=== PATIENT | female | born 1975 | race Hispanic/Latino ===

== ENCOUNTER 2020-02-18 06:53 | Day surgery (SDC) | payer BC ==
[2020-02-16 15:17] LABS: Absolute Lymphocytes (CBC) 1.7 K/uL (0.7-4.9); Basophils % 0.5 % (0-1.3); Hematocrit 44.5 % (36.0-45.0); Lymphocytes % 27.1 % (15.3-44.8); RBC Red Blood Cell Count 5.01 M/uL (3.86-4.86)
[2020-02-16 15:38] LABS: Albumin 4.2 g/dL (3.4-5.0); Bilirubin Direct 0.1 mg/dL (0-0.2); Bilirubin Total 0.3 mg/dL (0.2-1.0); Potassium 3.9 mmol/L (3.5-5.1); Protein, Total 7.7 g/dL (6.4-8.2)
--- NOTE | 2020-02-16 16:24 | RAD REPORT ---
EXAM DESCRIPTION: RAD - Chest Pa And Lat (2 Views) - 02/16/2020 3:18 pm CLINICAL HISTORY: pre oppending cholecystectomy COMPARISON: Two view chest August 2019 TECHNIQUE: Frontal and lateral views of the chest were obtained. FINDINGS: The lungs are clear. Interstitial pattern matches comparison. Heart size is normal and ce ntral vasculature is within normal limits. No pleural effusion or pneumothorax seen. No acute bony finding noted. No aortic abnormality. IMPRESSION: No acute cardiopulmonary process.
--- NOTE | 2020-02-17 18:15 | EKG ---
Test Date: 2020-02-16 Test Time: 14:49:35 Academic Guidance Specialist: CIARRA MEASUREMENT RESULTS: Intervals: Rate: 66 VA: 178 QRSD: 76 QT: 398 QTc: 417 [place]: P: 67 VA: 178 QRS: 56 T: 45 INTERPRETIVE STATEMENTS: Normal sinus rhythm Low voltage QRS Borderline ECG Compared to ECG 04/08/2018 16:04:53 Low QRS voltage now present Sinus bradycardia no longer present Electronically Signed On 02-17-20 18:11:33 SENIOR BUSINESS DEVELOPMENT ANALYST by Madi Dela Cruz
[2020-02-18 07:07] LABS: Specific Gravity >= 1.030 (1.005-1.030)
[2020-02-18] MEDS ORDERED: propofoL 200 MG/20 ML VIAL IV ONE (07:27)
[2020-02-18] MEDS ORDERED: dexAMETHasone 10 MG/ML VIAL ONE (07:28)
[2020-02-18] MEDS ORDERED: ONDANSETRON 4 MG/2 ML VIAL ONE (07:28)
[2020-02-18] MEDS ORDERED: LIDOCAINE 2% MPF 5 ML VIAL ONE (07:28)
[2020-02-18] MEDS ORDERED: FENTANYL CITR 100 MCG/2 ML ONE (07:28)
[2020-02-18] MEDS ORDERED: ROCURONIUM 50 MG/5 ML VIAL IV ONE (07:28)
[2020-02-18] MEDS ORDERED: MIDAZOLAM HCL 2 MG/2 ML INJ ONE (07:28)
[2020-02-18] MEDS ORDERED: NA CHLORIDE 0.9% 1,000 ML ONE (07:34)
[2020-02-18] MEDS: CEFOXITIN/SWI 1gm 1 GM/10 ML SYR ONE ×2 (08:18→08:45)
[2020-02-18] MEDS ORDERED: EPHEDRINE SULF 50 MG/ML VIAL ONE (09:15)
[2020-02-18] MEDS ORDERED: NEOSTIGMINE 1 MG/ML -5 ML ONE (09:24)
[2020-02-18] MEDS ORDERED: GLYCOPYRROLATE 0.2 MG/ML SYR ONE ×2 (09:24)
--- NOTE | 2020-02-18 09:24 | P.BOP ---
Preoperative diagnosis: symptomatic cholelithiasis, RUQ abd pain, cholecystitis Postoperative diagnosis: same Primary procedure: Laparoscopic cholecystectomy Experimental Rocket Sled Mechanic: TSEPHANIE TERRAZAS (KENNEL HAND) Estimated blood loss: <10cc Specimen: gb Findings: as above Anesthesia: General Complications: None Transferred to: Recovery Room Condition: Good
[2020-02-18] MEDS ORDERED: KETOROLAC 30 MG/ML INJ ONE (09:30)
[2020-02-18] MEDS: HYDROMORPHONE HCL 1 MG/ML INJ ONE ×2 (10:03→10:05)
--- NOTE | 2020-02-18 10:20 | OP ---
Date of Procedure: 02/18/2020 Surgeon: Deepak Grimes MD Property Field Inspector: Olivia Pfeiffer. Preoperative Diagnoses: Symptomatic cholelithiasis, right upper quadrant abdominal pain, cholecystit is. Postoperative Diagnoses: Symptomatic cholelithiasis, right upper quadrant abdominal pain, cholecysti tis. Procedure: Laparoscopic cholecystectomy. Anesthesia: General plus local. Indications: This is the case of a 44-year-old patient, who comes to us with above diagnosis. Fully explained the benefits, alternatives, and risks of laparoscopic possible open cholecystectomy, which include, but not limited to infection, bleeding, damage to adjacent structures, anesthesia complicat ion, choledocholithiasis, bile leak, pancreatitis, [place], and even . She also understands this may not relieve any symptoms. She might need more than one surgical intervention. She understood and s igned a consent. Description Of Procedure: The patient was brought to the operating room and placed in supine positio n. Anesthesia was done without complication. Abdominal area was prepped and draped in sterile fashi on. Marcaine 0.5% was injected for local anesthetic followed by sharp incision of the skin in the in fraumbilical region. Incision was carried down to fascia, which was opened under direct vision. Per itoneum was encountered, opened under direct vision. Vicryl #1 was placed inside the fascia. Diana trocar was carefully introduced. No bleeding was obtained. I placed 3 more trocars, 5 mm each one of them in the right upper quadrant under direct visualization. We proceeded to put a grasper in the fundus of the gallbladder, another grasper in the infundibulum, retracted the gallbladder in the inf erolateral fashion exposing the triangle of Calot and obtaining critical view. The cystic duct and c ystic artery were clearly isolated, freed circumferentially, and a connection between those and the g allbladder were clearly identified. I proceeded to ligate those by using at least 3 clips proximal, 1 clip distal, ligation in middle. Same was done with the cystic artery. No bile leak. No bleeding . The gallbladder was removed from liver using Bovie cauterizer and removed from abdominal cavity us ing EndoCatch through the umbilical incision. The area was inspected once again. No bile leak. No bleeding. Clips were intact. Gallbladder fossa with no bleeding either. At that moment, I proceede d to remove the trocars under direct vision, deflated the pneumoperitoneum, closed the fascia with #1 Vicryl, irrigated subcutaneous tissue, closed with 3-0 chromic, and the skin in a subcuticular fashi on and Steri-Strips on top. Sponge counts and instrument counts were correct. The patient tolerated the procedure well. The patient was sent to recovery in stable condition. Disposition: Home. Activity: As tolerated. No heavy lifting. Plan: Follow up in my office in 1 week. Call for appointment at [phone]. Keep area dry for 48 juan jose rs, then may shower. Keep Steri-Strip intact. Medications: Tylenol 3 q.4 hours p.r.n. pain, Bactrim DS p.o. b.i.d., and Zofran q.6 p.r.n. nausea. BINA/GE Voice ID: [id number] Report ID: [id number]
[2020-02-18] MEDS ORDERED: CODEINE 30MG/APAP 300MG TAB ONE (10:51)
[2020-02-18 14:13] VITALS: BP 102/58; TEMP 96.9; O2SAT 97
== END 2020-02-18 11:40 | disposition home or self-care (01) ==
LOC: OR 06:53
PROVIDERS: ATTEND Surgery
PROC: 0FT44ZZ Resection of Gallbladder, Percutaneous Endoscopic Approach (ICD-10-PCS; principal; 2020-02-18 08:45)
DX: K80.10 Calculus of gallbladder with chronic cholecystitis without obstruction (principal); Z20.828 Contact with and (suspected) exposure to other viral communicable diseases
CPT/HCPCS: 93005; 85025; 80048; 36415; 82150; 81025; 82947 ×2; 80076; 88304; 83690; 71046; 47562; U0002; J2704; J2250; J3010; J1100; J1170; J2710; J7030; J2405